=== PATIENT | female | born 1995 | race Two or more races ===

== ENCOUNTER 2024-04-14 22:51 | Emergency (ER) | payer OTHER ==
[~2024-04-14] VITALS: Ht 170.2 cm; Wt 68.0 kg
[2024-04-14] MEDS ORDERED: SYNTHROID75 MCG PO (23:05)
== END 2024-04-15 00:30 | disposition home or self-care (01) ==
LOC: ER 22:53
DX: O26.851 Spotting complicating pregnancy, first trimester (principal); Z3A.10 10 weeks gestation of pregnancy

== ENCOUNTER 2024-06-05 14:37 | Inpatient (IN) | payer OTHER ==
[~2024-06-05] VITALS: Ht 170.2 cm; Wt 70.3 kg
[~2024-06-05 14:37] MED LIST: SYNTHROID75 MCG PO
[2024-06-05 14:46] VITALS: O2SAT 100
[2024-06-05] MEDS ORDERED: 0.9 % SODIUM CHLORIDE 1,000 ML IV SCH (15:45)
[2024-06-05] MEDS ORDERED: MEPERIDINE HCL/PF 25 MG/ML VIAL IV ONE (15:45)
[2024-06-05 15:51] LABS: HEMATOCRIT 32.3 % (36.0-45.00); MEAN CELL VOLUME 78.2 fL (80.00-100.00); MEAN CORPUSCULAR HEMOGLOBIN 26.6 pg (27.00-32.0); PLATELET COUNT 243 K/uL (150-450); RED BLOOD COUNT 4.14 M/uL (4.00-6.00); RED CELL DISTRIBUTION WIDTH 14.8 % (11.5-14.5)
[2024-06-05 16:35] LABS: ALBUMIN 3.2 gm/dL (3.4-5.0); BILIRUBIN TOTAL 0.16 mg/dL (0.3-1.2); CALCIUM 9.5 mg/dL (8.5-10.1); CREATININE SERUM 0.71 mg/dL (0.55-1.02); GFR 97.32; GLOBULINA 4.5 G/DL (2.4-3.5); POTASSIUM 4.14 mEq/L (3.5-5.1); TOTAL PROTEIN 7.7 gm/dL (6.4-8.2)
[2024-06-05 17:33] LABS: URINE APPEARANCE Clear; URINE BILIRRUBIN Negative (NEGATIVE); URINE BLOOD Negative; URINE COLOR Yellow; URINE GLUCOSE Negative (NEGATIVE); URINE KETONE Trace (NEGATIVE); URINE LEUKOCYTE Trace; URINE NITRATE Negative; URINE PROTEIN Negative (NEGATIVE); URINE UROBILINOGEN 0.2 E.U./dl
[2024-06-05 17:37] LABS: URINE EPITHELIAL CELLS 34.9 uL (0.0-38.8); URINE RBC 10.2 uL (0.0-20.8); URINE WBC 17.3 uL (0.0-23.2)
[2024-06-05] MEDS ORDERED: ONDANSETRON HCL 2 MG/ML VIAL IV SCH (17:37)
[2024-06-05] MEDS ORDERED: MEPERIDINE HCL/PF 25 MG/ML VIAL IM PRN (17:45)
[2024-06-05] MEDS ORDERED: RINGERS SOLUTION,LACTATED 1,000 ML IV SCH (17:45)
[2024-06-05 18:22] VITALS: BP 96/69
[2024-06-05 20:29] VITALS: BP 106/64
[2024-06-06] VITALS: BP 101/63
[2024-06-06 08:11] VITALS: BP 90/55
[2024-06-06] MEDS ORDERED: CEFTRIAXONE SODIUM 1,000 MG VIAL IV NR (08:15)
[2024-06-06 13:24] VITALS: BP 107/55
[2024-06-06 16:09] VITALS: BP 95/60
[2024-06-07 00:32] VITALS: BP 97/61
[2024-06-07 08:09] VITALS: BP 90/60
== END 2024-06-07 13:49 | disposition home or self-care (01) | DRG 832 ==
LOC: ER 14:39 → OB/GYN 18:37
PROVIDERS: Emergency Medicine; ADMIT Obstetrics & Gynecology; ATTEND Obstetrics & Gynecology
PROC: 4A1HXCZ Monitoring of Products of Conception, Cardiac Rate, External Approach (ICD-10-PCS; principal; 2024-06-05)
DX: O26.892 Other specified pregnancy related conditions, second trimester (principal); N20.1 Calculus of ureter; Z3A.18 18 weeks gestation of pregnancy; Z20.822 Contact with and (suspected) exposure to COVID-19; R10.9 Unspecified abdominal pain

== ENCOUNTER 2024-10-28 05:19 | Inpatient (IN) | payer OTHER ==
[~2024-10-28] VITALS: Ht 170.2 cm; Wt 81.2 kg
[2024-10-28 05:09] VITALS: BP 117/59
[2024-10-28] MEDS ORDERED: AMPICILLIN SODIUM 2,000 MG VIAL ONE (05:23)
[2024-10-28] MEDS ORDERED: RINGERS SOLUTION,LACTATED 1,000 ML IV SCH (05:30)
[2024-10-28] MEDS ORDERED: AMPICILLIN SODIUM 2,000 MG VIAL IV ONE (05:30)
[2024-10-28] MEDS ORDERED: VALACYCLOVIR1000 MG PO (06:14)
[2024-10-28] MEDS ORDERED: PRENATAL + DHA1 EAC1 PO (06:15)
[2024-10-28 08:00] VITALS: BP 104/56
[2024-10-28 08:16] LABS: INR < 0.93; PARTIAL THROMBOPLASTIN TIME 25.4 SECONDS (22.0-34.0); PROTHROMBIN TIME 9.8 SECONDS (9.0-11.5)
[2024-10-28 08:28] LABS: HEMATOCRIT 31.6 % (36.0-45.00); MEAN CELL VOLUME 72.2 fL (80.00-100.00); MEAN CORPUSCULAR HGB CONC 31.2 g/dl (32.0-36.0); PLATELET COUNT 293 K/uL (150-450); RED BLOOD COUNT 4.38 M/uL (4.00-6.00)
[2024-10-28] MEDS ORDERED: AMPICILLIN SODIUM 1,000 MG VIAL ONE ×2 (08:31→20:20)
[2024-10-28 08:35] LABS: ALBUMIN 2.8 gm/dL (3.4-5.0); BILIRUBIN TOTAL 0.22 mg/dL (0.3-1.2); CALCIUM 8.9 mg/dL (8.5-10.1); CREATININE SERUM 0.61 mg/dL (0.55-1.02); GFR 115.96; GLOBULINA 4.1 G/DL (2.4-3.5); POTASSIUM 4.08 mEq/L (3.5-5.1); TOTAL PROTEIN 6.9 gm/dL (6.4-8.2)
[2024-10-28 08:43] LABS: HEMOGLOBIN 9.9 g/dL (12.0-15.00); MEAN CORPUSCULAR HEMOGLOBIN 22.6 pg (27.00-32.0)
[2024-10-28 08:46] LABS: PH,URINE 6.5 (5.0-8.0); URINE APPEARANCE Clear; URINE BILIRRUBIN Negative (NEGATIVE); URINE BLOOD Negative; URINE COLOR Yellow; URINE GLUCOSE Negative (NEGATIVE); URINE KETONE Negative (NEGATIVE); URINE LEUKOCYTE Negative; URINE NITRATE Negative; URINE PROTEIN Negative (NEGATIVE); URINE UROBILINOGEN 0.2 E.U./dl
[2024-10-28 08:49] LABS: URINE BACTERIA 6.1 uL (0.0-1933); URINE EPITHELIAL CELLS 3.9 uL (0.0-38.8)
[2024-10-28] MEDS ORDERED: AMPICILLIN SODIUM 1,000 MG VIAL IV SCH (09:00)
[2024-10-28 09:42] LABS: URINE CAST 0.14 uL (0.0-1.40); URINE RBC 1.3 uL (0.0-20.8); URINE WBC 0.7 uL (0.0-23.2)
[2024-10-28 09:58] LABS: RED CELL DISTRIBUTION WIDTH 18.7 % (11.5-14.5)
[2024-10-28] MEDS ORDERED: OXYTOCIN 20 UNITS/500ML RL PIGGYBAG IV ONE (10:57)
[2024-10-28] MEDS ORDERED: OXYTOCIN 500 ML IV SCH (11:00)
[2024-10-28 12:00] VITALS: BP 113/72
[2024-10-28 15:12] VITALS: BP 111/72
[2024-10-28] MEDS ORDERED: MORPHINE SULFATE 4 MG/ML VIAL IV STA (15:23)
[2024-10-28] MEDS ORDERED: CEFOXITIN SODIUM 2,000 MG VIAL IV ONE (17:33)
[2024-10-28] MEDS ORDERED: CITRIC ACID/SODIUM CITRATE 30 ML BLIST.PACK PO STA (17:38)
[2024-10-28] MEDS ORDERED: CEFOXITIN SODIUM 2,000 MG VIAL IV STA (17:38)
[2024-10-28] MEDS ORDERED: ERYTHROMYCIN BASE OPHT 1GM EACH TUBE OP ONE (17:39)
[2024-10-28] MEDS ORDERED: OXYTOCIN 10 UNITS/ML VIAL ONE (17:39)
[2024-10-28] MEDS ORDERED: CITRIC ACID/SODIUM CITRATE 30 ML BLIST.PACK PO ONE (17:47)
[2024-10-28] MEDS ORDERED: MORPHINE SULFATE 4 MG/ML VIAL IV PRN (20:00)
[2024-10-28] MEDS ORDERED: KETOROLAC TROMETHAMINE 30 MG VIAL IM ONE (20:00)
[2024-10-28] MEDS ORDERED: MORPHINE SULFATE 4 MG/ML VIAL IV ONE (20:30)
[2024-10-28] MEDS ORDERED: KETOROLAC TROMETHAMINE 30 MG VIAL ONE (20:42)
[2024-10-28 21:38] VITALS: BP 115/66
[2024-10-29] VITALS: BP 98/60
[2024-10-29] MEDS ORDERED: KETOROLAC TROMETHAMINE 10 MG TABLET PO SCH
[2024-10-29] MEDS ORDERED: CEFAZOLIN SODIUM 1,000 MG VIAL IV SCH (01:00)
[2024-10-29] MEDS ORDERED: SIMETHICONE 125 MG CAPSULE PO SCH (01:00)
[2024-10-29 01:04] LABS: HEMATOCRIT 30.2 % (36.0-45.00); HEMOGLOBIN 9.7 g/dL (12.0-15.00); MEAN CELL VOLUME 70.8 fL (80.00-100.00); MEAN CORPUSCULAR HEMOGLOBIN 22.8 pg (27.00-32.0); MEAN CORPUSCULAR HGB CONC 32.2 g/dl (32.0-36.0); PLATELET COUNT 273 K/uL (150-450); RED BLOOD COUNT 4.27 M/uL (4.00-6.00); RED CELL DISTRIBUTION WIDTH 18.8 % (11.5-14.5)
[2024-10-29] MEDS ORDERED: LEVOTHYROXINE SODIUM 100 MCG TABLET PO SCH (06:00)
[2024-10-29 08:57] VITALS: BP 107/70
[2024-10-29 09:11] LABS: HEMATOCRIT 30.9 % (36.0-45.00); HEMOGLOBIN 9.6 g/dL (12.0-15.00); MEAN CELL VOLUME 72.2 fL (80.00-100.00); MEAN CORPUSCULAR HEMOGLOBIN 22.5 pg (27.00-32.0); MEAN CORPUSCULAR HGB CONC 31.2 g/dl (32.0-36.0); PLATELET COUNT 266 K/uL (150-450); RED BLOOD COUNT 4.27 M/uL (4.00-6.00); RED CELL DISTRIBUTION WIDTH 18.2 % (11.5-14.5)
[2024-10-29] MEDS ORDERED: OxyCODONE HCL/APAP UD (PERCOCET) PO SCH (13:00)
[2024-10-29 16:19] VITALS: BP 96/63
[2024-10-29 23:17] VITALS: BP 93/66
[2024-10-30 07:49] VITALS: BP 100/67
[2024-10-30 17:42] VITALS: BP 93/55
[2024-10-31 01:00] VITALS: BP 108/68
[2024-10-31] MEDS ORDERED: KETO10TA2 PO (07:29)
[2024-10-31] MEDS ORDERED: OXYC1TAB9 PO (07:29)
[2024-10-31 07:41] VITALS: BP 101/65
[2024-10-31 16:00] VITALS: BP 105/67
== END 2024-10-31 18:04 | disposition home or self-care (01) | DRG 788 ==
LOC: OB/GYN 05:19 → LDR 05:19 → OB/GYN 18:59
PROVIDERS: Obstetrics & Gynecology Maternal & Fetal Medicine; ADMIT Obstetrics & Gynecology; ATTEND Obstetrics & Gynecology
PROC: 4A1HXCZ Monitoring of Products of Conception, Cardiac Rate, External Approach (ICD-10-PCS; 2024-10-28)
PROC: 10D00Z1 Extraction of Products of Conception, Low, Open Approach (ICD-10-PCS; principal; 2024-10-28 19:00)
DX: O33.8 Maternal care for disproportion of other origin (principal); Z3A.38 38 weeks gestation of pregnancy; Z37.0 Single live birth